=== PATIENT | male | born 1945 | race Caucasian/White ===

== ENCOUNTER 2019-04-13 06:44 | Day surgery (SDC) | payer MEDICARE, OTHER ==
[~2019-04-13 06:44] MED LIST: Lactated Ringers 1,000 ML IV SCH
[2019-04-13] MEDS ORDERED: fentaNYL 100 MCG/2 ML SDV ONE (08:39)
[2019-04-13] MEDS ORDERED: Propofol 200 MG/20 ML SDV ONE (08:39)
[2019-04-13 10:04] VITALS: BP 135/72; PULSE 62
--- NOTE | 2019-04-13 15:17 | OR ---
DATE OF SURGERY: 04/13/2019. REFERRING PROVIDER: Brain Crespo MD. PRE-OPERATIVE DIAGNOSES: History of colon polyps. 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 He is status post right colon resection. Last colonoscopy was in 2012. POST-OPERATIVE DIAGNOSES: 1. Moderate left-sided diverticulosis. 2. Normal right-sided colon anastomosis site. PROCEDURE: Colonoscopy. SURGEON: Galen Calvillo M.D. ANESTHESIA: Monitored anesthesia care. BOWEL PREP: Fair. Tiago is a 73-year-old male who was brought to the endoscopy suite after discussing risks and benefits of the procedure. Informed consent was obtained for conscious sedation and colonoscopy with or without biopsy and/or polypectomy. We also discussed possibility of missed lesions. Pre-procedure exam was unremarkable. IV, oxygen, and monitors were placed. The patient was placed in the left lateral decubitus position. Sedation was administered and a digital rectal exam was performed and unremarkable. Colonoscope was passed into the rectum and slowly advanced all the way to the right-sided anastomosis site. This was normal in appearance. Photograph was taken. The colonoscope was slowly withdrawn and the mucosa was closed observed in a direct circumferential manner. The ascending colon was unremarkable. The transverse colon was unremarkable. The descending and sigmoid colon were remarkable for moderate diverticulosis. Retroflexion was performed and rectal mucosa was unremarkable. Scope was removed. The patient tolerated the procedure well. The patient was monitored until that baseline status. Discharge instructions were reviewed and the patient was discharged in good condition. COMPLICATIONS: None. TOTAL TIME: 23 minutes. ESTIMATED BLOOD LOSS: None. RECOMMENDATIONS/FOLLOW-UP: Would consider a repeat colonoscopy again in 5 years depending on his health status and patient preference at that time. I would like to kindly thank Brain Crespo for this referral. DMB: 04/13/2019 09:59:09 MODL: 04/13/2019 15:13:11 /[id number]
== END 2019-04-13 10:49 | disposition home or self-care (01) ==
LOC: VM.SDS 06:44
PROVIDERS: ATTEND Family Medicine
DX: Z12.11 Encounter for screening for malignant neoplasm of colon (principal); K57.30 Diverticulosis of large intestine without perforation or abscess without bleeding; I10 Essential (primary) hypertension; E11.9 Type 2 diabetes mellitus without complications; E78.00 Pure hypercholesterolemia, unspecified; E78.1 Pure hyperglyceridemia; M35.3 Polymyalgia rheumatica; Z90.49 Acquired absence of other specified parts of digestive tract; Z86.010 Personal history of colon polyps; Z79.84 Long term (current) use of oral hypoglycemic drugs; Z79.899 Other long term (current) drug therapy
CPT/HCPCS: 00811; 82962; G0105; J2704; J3010; J7120

== ENCOUNTER 2021-04-18 22:18 | Emergency (ER) | payer OTHER, MEDICARE ==
[~2021-04-18 22:18] MED LIST changes: +Etomidate 2 MG/ML 10 ML SDV ONE; -Lactated Ringers 1,000 ML IV SCH; +Midazolam 1 MG/ML 2 ML SDV ONE; +Sodium Chloride 0.9% 1,000 ML IV ONE; +Succinylcholine 200 MG/10 ML MDV ONE; +fentaNYL 100 MCG/2 ML SDV ONE
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
[2021-04-18 23:19] LABS: PTT,PARTIAL THROMBOPLSTIN TIME 21.9 SEC (25.6-32.8)
[2021-04-18 23:40] LABS: BARBITURATE SCREEN,URINE NEGATIVE (NEGATIVE)
[2021-04-18 23:41] LABS: BENZODIAZEPINES SCREEN,URINE NEGATIVE (NEGATIVE); BUPRENORPHINE SCREEN,URINE NEGATIVE (NEGATIVE); METHAMPHETAMINE SCREEN, URINE NEGATIVE (NEGATIVE); THC SCREEN,URINE 50 NG/ML NEGATIVE (NEGATIVE)
[2021-04-18 23:48] LABS: ANION GAP 12.8 mmol/L (5-15); CHLORIDE,CL 104 mmol/L (98-107); SODIUM,NA 142 mmol/L (136-145)
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
== END 2021-04-18 23:39 | disposition short-term general hospital (02) ==
LOC: VM.ED 22:18
DX: S01.511A Laceration without foreign body of lip, initial encounter (principal); S60.512A Abrasion of left hand, initial encounter; S60.511A Abrasion of right hand, initial encounter; E78.00 Pure hypercholesterolemia, unspecified; I10 Essential (primary) hypertension; E11.9 Type 2 diabetes mellitus without complications; Z79.84 Long term (current) use of oral hypoglycemic drugs; Z79.899 Other long term (current) drug therapy; V03.90XA Pedestrian on foot injured in collision with car, pick-up truck or van, unspecified whether traffic or nontraffic accident, initial encounter
CPT/HCPCS: 31500; 36415; 43752; 51702; 71045; 80053; 80305-QW; 80307; 81001; 83735; 85025; 85610; 85730; 99284-25; 99285; J0330; J2250; J2704; J3010; J3490; J7030

== ENCOUNTER 2021-11-20 10:16 | Inpatient (IN) | payer MEDICARE, OTHER ==
[2021-11-20] MEDS ORDERED: Docusate Sodium 100 MG Cap PO PRN (17:03)
[2021-11-20] MEDS ORDERED: Ondansetron 4 MG Tab.DIS PO PRN (17:03)
[2021-11-20] MEDS ORDERED: Lidocaine 4% 1 each Patch TOP PRN (19:39)
[2021-11-20] MEDS: Ibuprofen 200 MG Tab PO PRN (21:14)
[2021-11-20] MEDS: Carvedilol 6.25 MG Tab PO SCH (21:15)
[2021-11-20] MEDS: Aspirin 81 MG Tab.Chew PO SCH (21:19)
[2021-11-20] MEDS: oxyCODONE 5 MG Tab PO PRN (23:08)
[2021-11-21] MEDS: oxyCODONE 5 MG Tab PO PRN ×3 (02:45→17:23)
[2021-11-21] MEDS: Ibuprofen 200 MG Tab PO PRN ×2 (06:00→15:50)
[2021-11-21] MEDS: glipiZIDE 5 MG Tab PO SCH (09:30)
[2021-11-21] MEDS: Aspirin 81 MG Tab.Chew PO SCH ×2 (09:30→20:37)
[2021-11-21] MEDS: Carvedilol 6.25 MG Tab PO SCH ×2 (09:33→20:37)
[2021-11-21] MEDS: metFORMIN 500 MG Tab PO SCH ×2 (09:34→18:53)
[2021-11-21] MEDS: Acetaminophen 325 MG Tab PO PRN (17:24)
[2021-11-21] MEDS: traMADol 50 MG Tab PO PRN (20:42)
[2021-11-22] MEDS: oxyCODONE 5 MG Tab PO PRN ×2 (00:26→21:38)
[2021-11-22] MEDS: traMADol 50 MG Tab PO PRN ×3 (05:53→23:36)
[2021-11-22] MEDS: Aspirin 81 MG Tab.Chew PO SCH ×2 (08:27→20:20)
[2021-11-22] MEDS: Carvedilol 6.25 MG Tab PO SCH ×2 (08:28→20:20)
[2021-11-22] MEDS: metFORMIN 500 MG Tab PO SCH ×2 (08:28→17:56)
[2021-11-22] MEDS: glipiZIDE 5 MG Tab PO SCH (08:29)
[2021-11-22] MEDS: Acetaminophen 325 MG Tab PO PRN (08:29)
[2021-11-22] MEDS: MAXIVISION PO SCH ×2 (08:31→17:57)
[2021-11-23] MEDS: Acetaminophen 325 MG Tab PO PRN (06:28)
[2021-11-23] MEDS: oxyCODONE 5 MG Tab PO PRN ×3 (06:29→20:53)
[2021-11-23] MEDS: metFORMIN 500 MG Tab PO SCH ×2 (07:56→17:28)
[2021-11-23] MEDS: Aspirin 81 MG Tab.Chew PO SCH ×2 (07:56→19:58)
[2021-11-23] MEDS: glipiZIDE 5 MG Tab PO SCH (07:56)
[2021-11-23] MEDS: Carvedilol 6.25 MG Tab PO SCH ×2 (07:59→19:57)
[2021-11-23] MEDS: MAXIVISION PO SCH ×2 (07:59→17:28)
[2021-11-23] MEDS: traMADol 50 MG Tab PO PRN (19:58)
[2021-11-24] MEDS: oxyCODONE 5 MG Tab PO PRN ×3 (02:35→19:58)
[2021-11-24] MEDS: Acetaminophen 325 MG Tab PO PRN ×2 (02:36→08:43)
[2021-11-24] MEDS: traMADol 50 MG Tab PO PRN ×2 (05:38→14:14)
[2021-11-24] MEDS: metFORMIN 500 MG Tab PO SCH ×2 (08:42→17:25)
[2021-11-24] MEDS: Carvedilol 6.25 MG Tab PO SCH ×2 (08:44→19:57)
[2021-11-24] MEDS: Aspirin 81 MG Tab.Chew PO SCH ×2 (08:44→19:57)
[2021-11-24] MEDS: glipiZIDE 5 MG Tab PO SCH (08:44)
[2021-11-24] MEDS: MAXIVISION PO SCH ×2 (08:49→17:25)
[2021-11-25] MEDS: traMADol 50 MG Tab PO PRN ×2 (00:53→19:46)
[2021-11-25] MEDS: oxyCODONE 5 MG Tab PO PRN ×2 (06:29→18:41)
[2021-11-25] MEDS: Aspirin 81 MG Tab.Chew PO SCH ×2 (07:27→19:46)
[2021-11-25] MEDS: metFORMIN 500 MG Tab PO SCH ×2 (07:27→17:37)
[2021-11-25] MEDS: glipiZIDE 5 MG Tab PO SCH (07:27)
[2021-11-25] MEDS: Carvedilol 6.25 MG Tab PO SCH ×2 (07:28→19:46)
[2021-11-25] MEDS: MAXIVISION PO SCH ×2 (07:28→17:37)
[2021-11-26] MEDS: oxyCODONE 5 MG Tab PO PRN ×2 (02:14→20:28)
[2021-11-26] MEDS: traMADol 50 MG Tab PO PRN ×2 (06:39→16:48)
[2021-11-26] MEDS: Aspirin 81 MG Tab.Chew PO SCH ×2 (09:33→20:29)
[2021-11-26] MEDS: Carvedilol 6.25 MG Tab PO SCH ×2 (09:33→20:29)
[2021-11-26] MEDS: metFORMIN 500 MG Tab PO SCH ×2 (09:34→17:38)
[2021-11-26] MEDS: MAXIVISION PO SCH ×2 (09:35→17:38)
[2021-11-26] MEDS: glipiZIDE 5 MG Tab PO SCH (09:35)
[2021-11-27] MEDS: Aspirin 81 MG Tab.Chew PO SCH ×2 (09:07→19:50)
[2021-11-27] MEDS: Carvedilol 6.25 MG Tab PO SCH ×2 (09:07→19:50)
[2021-11-27] MEDS: metFORMIN 500 MG Tab PO SCH ×2 (09:08→17:52)
[2021-11-27] MEDS: glipiZIDE 5 MG Tab PO SCH (09:08)
[2021-11-27] MEDS: MAXIVISION PO SCH ×2 (09:10→17:51)
[2021-11-28] MEDS: oxyCODONE 5 MG Tab PO PRN (01:27)
[2021-11-28] MEDS: metFORMIN 500 MG Tab PO SCH ×2 (08:11→18:35)
[2021-11-28] MEDS: glipiZIDE 5 MG Tab PO SCH (08:13)
[2021-11-28] MEDS: Carvedilol 6.25 MG Tab PO SCH ×2 (08:14→21:18)
[2021-11-28] MEDS: Aspirin 81 MG Tab.Chew PO SCH ×2 (08:15→21:18)
[2021-11-28] MEDS: MAXIVISION PO SCH ×2 (08:16→18:34)
[2021-11-28] MEDS: Acetaminophen 325 MG Tab PO PRN (14:59)
[2021-11-29] MEDS: oxyCODONE 5 MG Tab PO PRN (02:57)
[2021-11-29] MEDS: Aspirin 81 MG Tab.Chew PO SCH ×2 (08:06→20:12)
[2021-11-29] MEDS: MAXIVISION PO SCH ×2 (08:07→19:09)
[2021-11-29] MEDS: metFORMIN 500 MG Tab PO SCH ×2 (08:08→19:10)
[2021-11-29] MEDS: glipiZIDE 5 MG Tab PO SCH (08:08)
[2021-11-29] MEDS: Carvedilol 6.25 MG Tab PO SCH ×2 (08:09→20:12)
[2021-11-29] MEDS: Acetaminophen 325 MG Tab PO PRN (13:31)
[2021-11-30] MEDS: MAXIVISION PO SCH ×2 (09:51→17:23)
[2021-11-30] MEDS: Aspirin 81 MG Tab.Chew PO SCH ×2 (09:55→20:39)
[2021-11-30] MEDS: Carvedilol 6.25 MG Tab PO SCH ×2 (09:55→20:39)
[2021-11-30] MEDS: glipiZIDE 5 MG Tab PO SCH (09:55)
[2021-11-30] MEDS: metFORMIN 500 MG Tab PO SCH ×2 (09:56→17:22)
[2021-11-30] MEDS: Acetaminophen 325 MG Tab PO PRN (17:16)
[2021-12-01] MEDS: MAXIVISION PO SCH ×2 (10:28→18:00)
[2021-12-01] MEDS: Acetaminophen 325 MG Tab PO PRN (10:29)
[2021-12-01] MEDS: metFORMIN 500 MG Tab PO SCH ×2 (10:30→18:00)
[2021-12-01] MEDS: Carvedilol 6.25 MG Tab PO SCH ×2 (10:30→19:58)
[2021-12-01] MEDS: Aspirin 81 MG Tab.Chew PO SCH ×2 (10:30→19:58)
[2021-12-01] MEDS: glipiZIDE 5 MG Tab PO SCH (10:31)
[2021-12-02] MEDS: oxyCODONE 5 MG Tab PO PRN (00:36)
[2021-12-02] MEDS: Acetaminophen 325 MG Tab PO PRN ×3 (02:56→17:21)
[2021-12-02] MEDS: MAXIVISION PO SCH ×2 (09:15→17:21)
[2021-12-02] MEDS: metFORMIN 500 MG Tab PO SCH ×2 (09:17→17:22)
[2021-12-02] MEDS: Aspirin 81 MG Tab.Chew PO SCH ×2 (09:19→20:13)
[2021-12-02] MEDS: glipiZIDE 5 MG Tab PO SCH (09:19)
[2021-12-02] MEDS: Carvedilol 6.25 MG Tab PO SCH ×2 (09:19→20:13)
[2021-12-03] MEDS: metFORMIN 500 MG Tab PO SCH ×2 (07:41→17:42)
[2021-12-03] MEDS: Carvedilol 6.25 MG Tab PO SCH ×2 (07:41→20:10)
[2021-12-03] MEDS: glipiZIDE 5 MG Tab PO SCH (07:41)
[2021-12-03] MEDS: Aspirin 81 MG Tab.Chew PO SCH ×2 (07:42→20:10)
[2021-12-03] MEDS: oxyCODONE 5 MG Tab PO PRN (14:55)
[2021-12-03] MEDS: MAXIVISION PO SCH ×2 (15:59→17:46)
[2021-12-03] MEDS: Acetaminophen 325 MG Tab PO PRN (17:43)
[2021-12-04] MEDS: Acetaminophen 325 MG Tab PO PRN ×2 (01:05→07:45)
[2021-12-04 06:34] VITALS: BP 153/67; PULSE 58
[2021-12-04] MEDS: metFORMIN 500 MG Tab PO SCH (07:45)
[2021-12-04] MEDS: glipiZIDE 5 MG Tab PO SCH (07:45)
[2021-12-04] MEDS: Carvedilol 6.25 MG Tab PO SCH (07:45)
[2021-12-04] MEDS: Aspirin 81 MG Tab.Chew PO SCH (07:45)
[2021-12-04] MEDS: MAXIVISION PO SCH (07:47)
== END 2021-12-04 14:25 | disposition home or self-care (01) | DRG 561 ==
LOC: VM.MS 16:02
PROVIDERS: ADMIT Family Medicine; ATTEND Family Medicine
DX: Z47.1 Aftercare following joint replacement surgery (principal); Z96.651 Presence of right artificial knee joint; I10 Essential (primary) hypertension; E11.9 Type 2 diabetes mellitus without complications; E78.5 Hyperlipidemia, unspecified; E78.00 Pure hypercholesterolemia, unspecified; M35.3 Polymyalgia rheumatica; E53.8 Deficiency of other specified B group vitamins; Z87.891 Personal history of nicotine dependence; Z79.82 Long term (current) use of aspirin; Z79.84 Long term (current) use of oral hypoglycemic drugs; Z79.899 Other long term (current) drug therapy
CPT/HCPCS: 82947; 97110-GP; 97116-GP; 97129-GO; 97130-GO; 97162-GP; 97165-GO; 97530-GP; 97535-GO; A9270-GY